=== PATIENT | female | born 1945 | race African-American/Black ===

== ENCOUNTER 2018-01-25 05:30 | Day surgery (SDC) | payer MEDICARE, MEDICAID ==
[2018-01-24 13:16] LABS: BASOPHILS 0.2 % (0-2); EOSINOPHILS 0.9 % (0-7); HEMATOCRIT 37.2 % (36.0-48.0); HEMOGLOBIN 11.9 g/dL (12-16); IMMATURE GRANULOCYTES 0.4 % (0-5); LYMPHOCYTES 18.1 % (15-50); MCH 29.5 pg (26.0-34.0); MCV 92.3 fL (80.0-100.0); MEAN PLATELET VOLUME 9.1 fL (7.4-10.4); MONOCYTES 11.1 % (2-11); NEUTROPHILS 69.3 % (40-80); PLATELET COUNT 183 10x3/uL (130-400); RBC 4.03 10x6/uL (4.00-5.40); RDW 14.1 % (11.5-14.5); WBC 4.7 10x3/uL (4.8-10.8)
[2018-01-24 13:27] LABS: INR 1.01 (0.85-1.17); PROTIME 12.9 SECONDS (11.6-15.0)
[2018-01-24 13:40] LABS: ALBUMIN 3.2 g/dL (3.4-5.0); ANION GAP 12.4 mmol/L (8-16); BILIRUBIN - TOTAL 0.47 mg/dL (0.2-1.3); CALCIUM 8.3 mg/dL (8.5-10.1); CARBON DIOXIDE 28.9 mmol/L (21.0-32.0); CREATININE - SERUM 3.6 mg/dL (0.6-1.3); POTASSIUM - SERUM 4.3 mmol/L (3.5-5.1); PROTEIN - SERUM 7.7 g/dL (6.4-8.2)
[2018-01-24 16:18] LABS: APTT 32.3 SECONDS (22.8-39.4)
[~2018-01-25] VITALS: Ht 160 cm; Wt 71.3 kg
--- NOTE | ~2018-01-25 | OP ---
PATIENT NAME: KRISTA WHEAT MEDICAL RECORD: [id number] :47 LOCATION:[facility] ADMISSION DATE: SURGEON: SIMON JAIME MD DATE OF OPERATION: 01/25/2018 REFERRED BY: She is referred by Josue Kerns MD PREOPERATIVE DIAGNOSES: 1. End-stage renal disease and dependence on hemodialysis. 2. Chronic dyspepsia. POSTOPERATIVE DIAGNOSES: 1. End-stage renal disease and dependence on hemodialysis. 2. Gastric polyps x2. OPERATIONS PERFORMED: 1. Implantation of an RT graft prosthesis as a left forearm looped AV graft between the brachial artery at the antecubital space and the median cubital vein. 2. EGD with electrocautery and snare polypectomy of 2 gastric polyps, approximately 1.5 cm to 2 cm in diameter each. SURGEON: Simon Jaime MD ANESTHESIA: General endotracheal per EVENT STAFF MEMBER. PREOPERATIVE NOTE: Ms. Wheat is a 72-year-old female with end-stage renal disease, on dialysis with a tunneled dialysis catheter. She needs access and I plan to create an accessed, probably an AV graft in her left arm today. Also, she has complained of severe chronic dyspepsia and so I plan to do an EGD also while she is under anesthesia. With the patient in supine position, prepped and draped in sterile manner and under general endotracheal anesthesia. I examined her arm with Duplex ultrasound after applying nitroglycerin paste and applying a [place] drain as a proximal venous tourniquet. The forearm veins were very skimpy and in the upper arm the basilic vein appears to be potentially suitable for a translocated basilic vein fistula. The cephalic vein was small through most of its course in the upper arm. The median cubital vein appeared to be adequate for a fistula or graft as did the brachial artery. I made a transverse antecubital incision and exposed the brachial artery just above its bifurcation. It was controlled with Silastic loops. The median cubital vein, median antebrachial vein were exposed and dissected, controlled with Silastic loops and treated with topical papaverine. I chose an RT graft prosthesis. This was a bovine carotid artery origin. That prosthetic was rinsed and prepped as per the ditch repairer's instructions. It was bevelled and anastomosed end-to-side to the vein with a running 6-0 Prolene after a venotomy was made and the vein flushed with heparinized saline. Systemic anticoagulation was used. I placed the RT graft in a loop configuration of the forearm, which required one counter incision distally. The venous anastomosis was then performed again, bevelled end of graft to side of vein using a running 6-0 Prolene. The graft functioned very nicely immediately upon release of the OPERATIVE REPORT [id number] KRISTA WHEAT occluding loops and clamps, and the suture lines were hemostatic. The wound was irrigated with Ancef and gentamycin. Both wounds were closed with interrupted inverted 3-0 Vicryl and the proximal wound also closed with a running 4-0 Monocryl on skin. The incisions were further sealed and glued with Dermabond and dressed then with Maxorb AG, Cavilon and Tegaderm. The patient was then positioned for EGD. The Olympus gastroscope was passed easily through the mouth and pharynx, into the esophagus. The esophagus was normal. There was no hiatus hernia present, though there was a bit of an angulation just at the distal esophagus, GE junction. The cardia and fundus and body of the stomach were normal in appearance. Distally in the antrum, there was about a 2-cm diameter adenomatous-appearing pedunculated polyp on the posterior antral wall and anteriorly on the antral wall there was a large fold radiating from the pylorus, which had a sessile type lesion with similar adenomatous appearance. I passed the scope on through the pylorus and then into the first, second and third portions of the duodenum, and found no other pathology. The scope was pulled back into the stomach and retroflexed, and no other pathology was seen. The posterior polyp was then removed with electrocautery and snare, and retrieved intact, and sent for permanent section histology. I used the same cautery snare then to remove the adenomatous-appearing polypoid tissue from the anterior intramucosal fold and that also was retrieved and sent for permanent section histology. Hemostasis at both sites was assured with some additional electrocautery. Insufflated air was suctioned away and the scope withdrawn as I was assured we had achieved successful adequate hemostasis. PLAN: The patient will resume her usual renal diet medications now. In addition, we will place her on Carafate 1 gram b.i.d. and Pepcid 40 mg p.o. b.i.d. She will be scheduled to return to see me in my office in about a week or two, I will plan to remove her operative dressing at that time. I believe it will be 2 to 3 weeks before the prosthesis can be utilized for dialysis access and of course will check and follow up on the pathology reports from today's specimens. The patient was awakened and taken to the recovery room in stable condition. Blood loss was about 5 mL, was not replaced. All sponges, instruments and needles were accounted for. No drain was used. Two gastric polyps were sent for permanent section histology. No other specimens. TRANSINT:[id number] Voice Confirmation ID: [id number] DOCUMENT ID: [id number] SIMON JAIME MD at [id number] CC: JOSUE KERNS MD [id number] DICTATION DATE: 01/25/18 1213 ACETYLENE TORCH OPERATOR: 01/25/18 1247 [facility] 01/25/18 [id number] [place] [id number]
[~2018-01-25 05:30] MED LIST: COREG25 MG; LASIX40 MG PO; LIPITOR10 MG PO
[2018-01-25 06:30] VITALS: BP 151/81; Ht 160 cm; Wt 71.3 kg
[2018-01-25] MEDS ORDERED: HYDROCODON-ACE1 EAC7 PO (11:45)
== END 2018-01-25 13:37 | disposition home or self-care (01) ==
LOC: D.OPS 05:30
PROVIDERS: Anesthesiology
DX: N18.6 End stage renal disease (principal); Z99.2 Dependence on renal dialysis; K31.7 Polyp of stomach and duodenum; R10.13 Epigastric pain; Z01.812 Encounter for preprocedural laboratory examination

== ENCOUNTER 2018-02-02 18:01 | Emergency (ER) | payer MEDICARE, MEDICAID ==
[~2018-02-02 18:01] MED LIST changes: +HYDROCODON-ACE1 EAC7 PO
== END 2018-02-02 19:09 | disposition left against medical advice (07) ==
LOC: D.ER 18:01
DX: R10.9 Unspecified abdominal pain (principal)

== ENCOUNTER → 2018-02-21 11:25 | Outpatient (CLI) | payer MEDICARE, MEDICAID | END | disposition home or self-care (01) | LOC: D.RAD 11:25 | DX: R06.02 Shortness of breath (principal); R05 Cough ==